=== PATIENT | male | born 1995 | race Caucasian/White ===

== ENCOUNTER 2024-04-10 14:15 | Emergency (ER) | payer SELFPAY ==
[2024-04-10 14:51] VITALS: BP 143/82; PULSE 97; RESP 17; TEMP 98.3; BMI 26.6
== END 2024-04-10 16:11 | disposition home or self-care (01) ==
LOC: JERFT 14:15
DX: R05.9 Cough, unspecified (principal); R09.81 Nasal congestion; J06.9 Acute upper respiratory infection, unspecified; R50.9 Fever, unspecified; M79.10 Myalgia, unspecified site; R51.9 Headache, unspecified; J02.9 Acute pharyngitis, unspecified; R42 Dizziness and giddiness
CPT/HCPCS: 0241U-QW; 99283-25